=== PATIENT | female | born 1970 | race Caucasian/White ===

== ENCOUNTER → 2022-06-19 | Outpatient (CLI) | payer BC ==
--- NOTE | 2022-06-19 10:06 | MR ---
EXAMINATION TYPE: MR shoulder RT wo con DATE OF EXAM: 06/19/2022 COMPARISON: X-ray 05/28/2022 HISTORY: Right shoulder pain, injured in fall 4 weeks ago. TECHNIQUE: Multiplanar, multisequence imaging of the right shoulder is performed without contrast. FINDINGS: There is a 1 cm area of marrow edema involving the superior margin of the humeral head comp atible with a bone contusion. No definite fracture line. There is fluid in the subacromial subdeltoid bursa. There is thickening and increased signal involvin g the distal 1.8 cm of the infraspinatus tendon extending to the insertion of greater signal alterati on along the undersurface of the tendon compatible with tendinosis. No through thickness tear nor ret raction. There is bursal surface irregularity involving the distal 1 cm the insertion of the supraspinatus wit h a partial thickness tearing along the anterior fibers measuring approximately 5 mm. The bony labrum are intact and the glenohumeral ligaments appear to be intact. There is AC joint arthropathy. Subscapularis tendon appears intact. Suprascapular notch is a normal appearance. Bicipital tendon is well situated simple. However, there appears to be thickening and increased intra substance signal within the bicipital tendon within the rotator interval. There does appear to be nor mal attachment to the level of the biceps anchor. IMPRESSION: 1. There is tendinopathy of the distal supraspinatus tendon measuring a length of approximately 1 cm with a greater bursal surface irregularity and bursal scuffing. However, on the very anterior margin of the insertion there is marked irregularity measuring approximately 5 mm compatible with a partial through thickness tear. No retraction. 2. Tendinopathy distal 1.7 cm infraspinatus tendon. No through thickness tear. Intrasubstance tear di fficult to exclude. 3. Within the rotator interval is thickening and increased signal within the biceps tendon compatible with bicipital tendinosis. Split tear in the differential diagnosis. 4. AC joint arthropathy with impingement. 5. There is a bone marrow edema or contusion involving the superior lateral portion of the humeral he ad measuring approximately 1 cm. No fracture line is seen although there may be mild flattening of th e humeral head at this location could be associated with a impaction type injury, correlate clinicall y.
== END | disposition home or self-care (01) ==
LOC: RADMRIMAIN 08:04
PROVIDERS: ATTEND Orthopaedic Surgery
DX: M12.811 Other specific arthropathies, not elsewhere classified, right shoulder (principal)

== ENCOUNTER → 2023-01-02 | Outpatient (CLI) | payer BC ==
--- NOTE | 2023-01-03 06:56 | MM ---
Reason for Exam: Screening (asymptomatic). Last mammogram was performed 1 year(s) and 6 month(s) ago. Patient History: Menarche at age 11. First Full-Term at age 21. Risk Values: Christiane 5 year model risk: 1.0%. NCI Lifetime model risk: 8.5%. Prior Study Comparison: 07/11/2021 Bilateral Screening Mammogram, [facility]. Tissue Density: The breast tissue is almost entirely fat. Findings: Analyzed By CAD. Benign-appearing bilateral axillary lymph nodes are redemonstrated. There is no suspicious group of microcalcifications or new suspicious mass in either breast. Overall Assessment: Negative, BI-RAD 1 Management: Screening Mammogram of both breasts in 1 year. . Patient should continue monthly self-breast exams. A clinical breast exam by your physician is recommended on an annual basis. This exam should not preclude additional follow-up of suspicious palpable abnormalities. Note on Christiane scores and lifetime risk: 1. A Christiane score greater than 3% is considered moderate risk. If this is the case, consider specialist referral to assess eligibility for a risk reducing agent. 2. If overall lifetime risk for the development of breast cancer is 20% or higher, the patient may qualify for future screening with alternating mammogram and breast MRI. Electronically signed and approved by: Andreas Rodriguez M.D.
== END | disposition home or self-care (01) ==
LOC: RADMAMWWP 12:33
PROVIDERS: ATTEND Obstetrics & Gynecology Obstetrics
DX: Z12.31 Encounter for screening mammogram for malignant neoplasm of breast (principal)
CPT/HCPCS: 77063; 77067

== ENCOUNTER → 2024-01-16 | Outpatient (CLI) | payer BC ==
--- NOTE | 2024-01-16 19:01 | MM ---
Reason for Exam: Screening (asymptomatic). Last screening mammogram was performed 12 month(s) ago. Patient History: Menarche at age 11. First Full-Term at age 21. Postmenopausal. Currently using Unspecified Hormone, starting at age 52. Maternal aunt had breast cancer at or over age 50. Risk Values: Christiane 5 year model risk: 1.1%. NCI Lifetime model risk: 8.4%. Prior Study Comparison: 07/11/2021 Bilateral Screening Mammogram, [facility]. 01/02/2023 Bilateral MG 3D screening mammo w/cad, [facility]. Tissue Density: There are scattered areas of fibroglandular density. Findings: Analyzed By CAD. There is no suspicious group of microcalcifications or new suspicious mass in either breast. Overall Assessment: Negative, BI-RAD 1 Management: Screening Mammogram of both breasts in 1 year. . Patient should continue monthly self-breast exams. A clinical breast exam by your physician is recommended on an annual basis. This exam should not preclude additional follow-up of suspicious palpable abnormalities. Note on Chirstiane scores and lifetime risk: 1. A Christiane score greater than 3% is considered moderate risk. If this is the case, consider specialist referral to assess eligibility for a risk reducing agent. 2. If overall lifetime risk for the development of breast cancer is 20% or higher, the patient may qualify for future screening with alternating mammogram and breast MRI. Electronically signed and approved by: Yeny Murrell M.D. Radiologist
== END | disposition home or self-care (01) ==
LOC: RADMAMWWP 08:56
PROVIDERS: ATTEND Obstetrics & Gynecology Obstetrics
DX: Z12.31 Encounter for screening mammogram for malignant neoplasm of breast (principal); Z78.0 Asymptomatic menopausal state; Z80.3 Family history of malignant neoplasm of breast
CPT/HCPCS: 77063; 77067